=== PATIENT | male | born 2000 | race Caucasian/White ===

== ENCOUNTER 2020-08-06 14:25 | Emergency (ER) | payer OTHER ==
[~2020-08-06] VITALS: Ht 172.7 cm; Wt 81.6 kg
--- NOTE | 2020-08-06 14:41 | ED Upper Extremity ---
General Stated Complaint: R ARM PAIN Source: patient Exam Limitations: no limitations History of Present Illness Date Seen by Provider: Aug 06, 2020 Time Seen by Provider: 14:24 Initial Comments Patient presents to the ER by private conveyance from home with chief complaint she has a large painful knot on her proximal right humerus. It started Saturday, 6 days ago. She is used ibuprofen and topical creams like icy hot on it with no relief. The pain is only getting worse. She denies any trauma and does not know out happen. She does not have a sting from an insect. There is no discoloration weakness numbness or rash. Patient has no significant medical history. She is a student at [employer] from [place] and has not sought help for it u ntil today. She did take 2 tablets of ibuprofen at 1130 this morning. No previous surgery or scope. Allergies and Home Medications Allergies Coded Allergies: No Known Drug Allergies (Unverified , 08/06/20) Patient Home Medication List Home Medication List Reviewed: Yes Review of Systems Constitutional: No chills, No diaphoresis EENTM: No ear discharge, No hearing loss Respiratory: No cough, No short of breath Cardiovascular: No chest pain, No palpitations Gastrointestinal: No abdominal pain, No nausea Genitourinary: No discharge, No dysuria Musculoskeletal: see HPI Past Xhlktyo-Aqviuv-Klmfmh Hx Patient Social History Alcohol Use: Denies Use Smoking Status: Never a Smoker Physical Exam Vital Signs Vital Signs - First Documented 08/06/20 14:37 Temp 36.7 Pulse 136 Resp 20 B/P (MAP) 145/88 (107) Pulse Ox 99 O2 Delivery Room Air Capillary Refill : Height, Weight, BMI Height: '" Weight: lbs. oz. kg; BMI Method: General Appearance: WD/WN, no apparent distress HEENT: PERRL/EOMI, pharynx normal Neck: full range of motion, normal inspection Cardiovascular: normal peripheral pulses, no edema Respiratory: no respiratory distress, no accessory muscle use Shoulder: pain, soft tissue tenderness, swelling (6 cm firm, fixed nodule likely hematoma over her right bicep proximal insertion on the humerus.) Elbow/Forearm: normal inspection, non-tender, no evidence of injury, normal ROM, Right Neurologic/Tendon: normal sensation, normal motor functions, normal tendon functions, responds to pain, no evidence tendon injury, other (Motor strength 5 out of 5 bilateral upper extremities in flexion of the shoulder, elbow, abduction and abduction.) Neurologic/Psychiatric: alert, normal mood/affect Skin: normal color, warm/dry Progress/Results/Core Measures Results/Orders My Orders Orders - JASWANT SYED Humerus, Right, 2 Views (08/06/20 14:35) Vital Signs/I&O 08/06/20 14:37 Temp 36.7 Pulse 136 Resp 20 B/P (MAP) 145/88 (107) Pulse Ox 99 O2 Delivery Room Air Progress Progress Note : Time: 14:38 Progress Note Suspected hematoma. No evidence of infection or skin disruption such as from a bug bite. Trauma seems more likely however the patient denies any recollection of this. Plan to get a plain film x-ray of the humerus 2-3 views to rule out underlying fracture. Heat, NSAIDs and time. This is been going on too long and does not seem likely to be a compartment syndrome given its appearance and limited soft tissue involvement. It is not circumferential. It is not mobile like a large lipoma and came up too quickly. It does not appear to be a detached bicipital head and her biceps range of motion appears to be intact. Strength is symmetrical bilaterally. Diagnostic Imaging Diagonstic Imaging: Xray Plain Films/CT/US/NM/MRI: other (Right humerus 2-3 views) Comments NAME: SAVANNAH RAUSCH MED REC#: [id number] PT STATUS: REG ER : 2000 PHYSICIAN: JASWANT SYED MD ADMIT DATE: 08/06/20/ER Draft Date of Exam:08/06/20 HUMERUS, RIGHT, 2 VIEWS EXAM: Humerus, right, 2 views INDICATION: Right arm pain. No known injury. COMPARISON: None. FINDINGS: No fracture or malalignment. No suspicious osteoblastic or lytic lesions. Soft tissue shadows are unremarkable. IMPRESSION: Negative right humerus radiographs. Dictated on workstation # [id number] Dict: 08/06/20 1459 Trans: 08/06/20 1505 [facility] [id number] Interpreted by: TON GAMEZ MD Electronically signed by: Reviewed: Reviewed by Me Departure Impression Primary Impression: Hematoma Disposition: 01 HOME, SELF-CARE Condition: Stable Departure-Patient Inst. Decision time for Depature: 15:20 Referrals: NO,LOCAL PHYSICIAN (PCP) Primary Care Physician SOTERO MONTERO MD Patient Instructions: HEMATOMA Add. Discharge Instructions: You seem to have a hematoma which is like a large bruise on your arm. Alternate ice packs with heating pads. Continue to use topical creams such as icy hot or Biofreeze. Tylenol 1000 mg every 8 hours as necessary for pain. Ibuprofen 800 mg every 8 hours as necessary for pain. Follow-up with [facility] next week for reevaluation. Return to the nearest ER if it significantly worsens or you have other concerns. JASWANT SYED Aug 06, 2020 14:41
--- NOTE | 2020-08-06 15:05 | Diagnostic Imaging Report ---
EXAM: Humerus, right, 2 views INDICATION: Right arm pain. No known injury. COMPARISON: None. FINDINGS: No fracture or malalignment. No suspicious osteoblastic or lytic lesions. Soft tissue shadows are unremarkable. IMPRESSION: Negative right humerus radiographs. Dictated by: Dictated on workstation # [id number]
[2020-08-06] MEDS ORDERED: KETOROLAC 60 MG/2 ML VIAL IM ONE (15:45)
[2020-08-06 16:00] VITALS: BP 145/88
== END 2020-08-06 16:01 | disposition home or self-care (01) ==
LOC: ER 14:27
DX: S40.021A Contusion of right upper arm, initial encounter (principal); X58.XXXA Exposure to other specified factors, initial encounter
CPT/HCPCS: 73060